=== PATIENT | female | born 1965 | race Caucasian/White ===

== ENCOUNTER 2022-11-17 18:27 | Emergency (ER) | payer BC ==
[2022-11-17] MEDS: Lidocaine 1% 5 ML VIAL INJECT ONE (19:33)
[2022-11-17] MEDS: Bacitracin Oint 1 GM U/D Packet TOP ONE (19:34)
[2022-11-17] MEDS: Diphtheria,Pertussis(Acell),Tetanus Vaccine 0.5 ML Syringe IM ONE (19:34)
== END 2022-11-17 19:40 | disposition home or self-care (01) ==
LOC: LL.ED 18:27
DX: S70.352A Superficial foreign body, left thigh, initial encounter (principal); Z23 Encounter for immunization; Z72.0 Tobacco use; W45.8XXA Other foreign body or object entering through skin, initial encounter
CPT/HCPCS: 90471; 90715; 99283; 99283-25; J3490